=== PATIENT | female | born 1975 | race Caucasian/White ===

== ENCOUNTER → 2017-12-06 | Outpatient (CLI) | payer MEDICARE, MEDICAID ==
[2017-12-06 10:43] LABS: ALBUMIN 4.2 g/dL (3.5-5.0); CALCIUM 9.7 mg/dL (8.4-10.2)
== END ==
LOC: OD 09:19
DX: G47.419 Narcolepsy without cataplexy (principal); G23.8 Other specified degenerative diseases of basal ganglia; Z51.81 Encounter for therapeutic drug level monitoring; Z79.899 Other long term (current) drug therapy
CPT/HCPCS: 36415; 82040; 82306; 82310; 83605; 83970